=== PATIENT | male | born 1960 | race Caucasian/White ===

== ENCOUNTER 2016-12-06 15:17 | Emergency (ER) | payer SELFPAY ==
[~2016-12-06] VITALS: Ht 180.3 cm; Wt 111.1 kg
[~2016-12-06 15:17] MED LIST: ALLOPURINOL300 MG PO; ANDROGEL75 G1 TD; BUPROPION XL300 MG PO; FLOMAX0.4 MG PO; LISINOPRIL-HCT1 EACH PO; NORCO 5-325 TA1 EACH PO; SIMVASTATIN40 MG PO; ZOFRAN4 MG PO
== END 2016-12-06 15:35 | disposition home or self-care (01) ==
LOC: ED 15:17
DX: Z00.8 Encounter for other general examination (principal)

== ENCOUNTER 2019-02-24 14:13 | Emergency (ER) | payer OTHER ==
[~2019-02-24] VITALS: Ht 180.3 cm; Wt 111.1 kg
== END 2019-02-24 15:07 | disposition home or self-care (01) ==
LOC: ED 14:13
DX: S46.201A Unspecified injury of muscle, fascia and tendon of other parts of biceps, right arm, initial encounter (principal); W22.8XXA Striking against or struck by other objects, initial encounter; I10 Essential (primary) hypertension; Z88.5 Allergy status to narcotic agent; Z79.899 Other long term (current) drug therapy
CPT/HCPCS: 99283

== ENCOUNTER 2020-07-23 07:00 | Day surgery (SDC) | payer OTHER ==
[~2020-07-23] VITALS: Ht 180.3 cm; Wt 113.6 kg
[~2020-07-23 07:00] MED LIST changes: +ADVIL200 MG PO; +GABAPENTIN300 MG PO; +HYDROCODON-ACE1 EA11 PO; +LEVOTHYROXINE50 MCG PO; +NORCO 7.5-3251 EACH PO
--- NOTE | 2020-07-23 08:52 | NUR ---
PT ALERT, ORIENTED AND SUPPORTED BY HIS DA. PT HAS HAD PREVIOUS SCOPE. PREP WAS A LITTLE OF A CHALLENGE. ALL QUESTIONS ASKED ANSWERED. PT'S DA WILL RETURN AT [place]. PT REQUESTED PRAYER, WILL FOLLOW NEEDED
--- NOTE | 2020-07-23 08:56 | NUR ---
07/23/20 0856 Elías,Nataliya 0849 PT ARRIVED TO PACU ON 6L VIA MASK, RESP EVEN AND UNLABORED. VSS. 0854 PT WAKES TO TACTILE STIMULI AND ENCOURAGED TO PASS GAS. PT DENIES PAIN AND NAUSEA.
--- NOTE | 2020-07-23 09:49 | OR ---
[facility] [address], [place] [address] Signed DATE OF OPERATION: 07/23/2020 SURGEON: Agustina Santos MD PREOPERATIVE DIAGNOSES: 1. History of diverticulosis/diverticulitis. 2. Hyperplastic polyps in 1999 and 2014. POSTOPERATIVE DIAGNOSES: 1. 5 mm polyp at 22 cm (distal sigmoid colon). 2. 3 mm polyp at 16 cm (rectosigmoid junction). 3. 3 mm polyp at 8 cm. 4. Moderate diverticulosis, left greater than right. 5. Moderate-sized internal anal skin tag x1. PROCEDURE: Colonoscopy with hot biopsy. ESTIMATED BLOOD LOSS: None. INDICATIONS: Sherrie is a 59-year-old gentleman, asked to see me for a followup colonoscopy. He said over the years he has had two or three bouts of diverticulitis. He recognizes the pain and puts himself on a liquid diet. He calls his primary care provider and gets antibiotics and recovers quite nicely. He said he had a colonoscopy in [address] Cerda. He said he had hyperplastic polyps removed. He also likes to drink a little whiskey every day after work and therefore, he requires monitored anesthesia care with propofol. He did have a CT scan of the abdomen and pelvis in February 2020 showing his diverticular disease. There were no inflammatory changes at that time. He said he was just finishing his antibiotics. Overall, he said he is feeling much better. There is no family history of colon cancer or polyps. In the office, I gave Sherrie a booklet on diverticulosis as well as colonoscopy. He understands colonoscopy quite well. He understands the risks including, but not limited to gas bloating, crampy abdominal pain, bleeding, perforation requiring surgery, and missed diagnosis. He also understands the need for monitored anesthesia care. He had expressed understanding and wished to proceed. PROCEDURE NOTE: Sherrie was taken into our endoscopy suite and placed in the left lateral decubitus Electronically Signed By: AGUSTINA SANTOS MD 07/23/20 0949 PATIENT NAME: SHERRIE SERRATO OPERATIVE REPORT DATE OF : 58 REPORT #: [id number] PHYSICIAN: AGUSTINA SANTOS MD PCP: PRIYANKA [place]CHELL MD REPORT IS CONFIDENTIAL AND NOT TO BE RELEASED WITHOUT AUTHORIZATION [facility] [address], [place] [address] Signed position. He was maintained on IV sedation per nurse distribution operation supervisor. A digital rectal exam was performed and this was unremarkable. His prostate is mildly enlarged and indurated. The adult colonoscope was introduced and advanced under direct visualization of camera. He does have moderate diverticula in the sigmoid and distal left colon. They were moderate in size, moderate in number, and scattered about. His sigmoid colon is a bit long and it took just a few minutes to get through that area and then around to the cecum itself. Not particularly severe. He does have a few diverticula right around the cecum and ileocecal valve. We could easily identify the appendiceal orifice and his ileocecal valve. His prep was quite excellent. The scope was slowly withdrawn. We took pictures throughout for photodocumentation. The above-mentioned polyps were easily removed with the help of hot biopsy forceps. We retroflexed the scope in the rectum and he has just a single moderate-sized pedunculated internal anal skin tag. It could easily be removed with a snare or the hot biopsy if he would desire in the future. After this, the gas was suctioned out and the colonoscope removed. Sherrie tolerated the procedure quite well. RECOMMENDATIONS: I will see Sherrie back in my office in 7 to 14 days to review his results. Agustina Santos MD ALB/MODL /[id number] cc: MD Priyanka Cantrell MD Copies: AGUSTINA SANTOS MD, JONATHAN MD ~ Electronically Signed By: AGUSTINA SANTOS MD 07/23/20 0949 PATIENT NAME: SHERRIE SERRATO OPERATIVE REPORT DATE OF : 58 REPORT #: [id number] PHYSICIAN: AGUSTINA SANTOS MD PCP: PRIYANKA [place]CHELL MD REPORT IS CONFIDENTIAL AND NOT TO BE RELEASED WITHOUT AUTHORIZATION
--- NOTE | 2020-07-24 15:13 | PATH ---
[facility] [address] [place], [place] [address] Signed SPECIMEN(S): A DISTAL SIGMOID POLYP 22 CM SPECIMEN(S): B DISTAL SIGMOID POLYP 16 CM SPECIMEN(S): C RECTAL POLYP 8 CM SPECIMEN SOURCE: A. DISTAL SIGMOID POLYP 22 CM B. DISTAL SIGMOID POLYP 16 CM C. RECTAL POLYP 8 CM CLINICAL HISTORY: Colonoscopy. Diverticulosis, history of colon polyps. Postop: Colorectal polyps, diverticulosis, skin tag. MICROSCOPIC DESCRIPTION: Histologic sections of all submitted blocks are examined by light microscopy. These findings, together with the gross examination, support the pathologic diagnosis. FINAL PATHOLOGIC DIAGNOSIS: A. Distal sigmoid colon, 22 cm, polypectomy: - Tubular adenoma (one fragment). - Two additional fragments show hyperplastic type change. - Negative for high-grade dysplasia or malignancy. B. Distal sigmoid colon polyp at 16 cm, biopsy: - Hyperplastic polyp. C. Rectum, polypectomy: - Tubular adenoma. - Negative for high-grade dysplasia or malignancy. DWS:cml:C2NR GROSS DESCRIPTION: Three specimens are received in three containers, labeled "DS." A. The specimen, labeled "DS, distal sigmoid colon polyp at 22 cm," is received in formalin and consists of three chaudhary soft tissue fragments that measure 0.1-0.2 cm in greatest dimension. The specimen is entirely submitted in cassette (A1). B. The specimen, labeled "DS, distal sigmoid colon polyp at 16 cm," is received in formalin and consists of one chaudhary soft tissue fragment that measures 0.2 cm in greatest dimension. The specimen is entirely submitted in cassette (B1). C. The specimen, labeled "DS, rectal polyp at 8 cm," is received in formalin and consists of one chaudhary soft tissue fragment that measures 0.1 cm in greatest PATIENT NAME: SHERRIE SERRATO PATHOLOGY DATE OF : 58 REPORT #: [id number] PHYSICIAN: PARI PATHOLOGY PCP: PRIYANKA MITCHELL MD REPORT IS CONFIDENTIAL AND NOT TO BE RELEASED WITHOUT AUTHORIZATION [facility] [address] [place], [place] [address] Signed dimension. The specimen is entirely submitted in cassette (C1). JS (under the direct supervision of a pathologist) The Gross Description was prepared using a voice recognition system. The report was reviewed for accuracy; however, sound-alike word errors, addition and/or deletions may occur. If there is any question about this report, please contact Client Services. PERFORMING LABORATORY: The technical component was performed by [employer], [address] [place] [address] (School Standards Coach: Ping Bourgeois MD; CLIA# [id number]). Professional interpretation was performed by [employer], [facility], [address] [place] [address] (CLIA#: [id number]). Diagnostician: Silas Linares MD Pathologist Electronically Signed 07/24/2020 Copies: ~ PATIENT NAME: SHERRIE SERRATO PATHOLOGY DATE OF : 58 REPORT #: [id number] PHYSICIAN: PARI GOMEZ PCP: PRIYANKA MITCHELL MD REPORT IS CONFIDENTIAL AND NOT TO BE RELEASED WITHOUT AUTHORIZATION
== END 2020-07-23 09:21 | disposition home or self-care (01) ==
LOC: OPS 07:00 → DS 07:00 → OPS 08:15 → DS 08:45 → OPS 09:21 → DS 10:00
PROVIDERS: ATTEND Colon & Rectal Surgery
PROC: 0DBN8ZX Excision of Sigmoid Colon, Via Natural or Artificial Opening Endoscopic, Diagnostic (ICD-10-PCS; 2020-07-23)
PROC: 0DBP8ZX Excision of Rectum, Via Natural or Artificial Opening Endoscopic, Diagnostic (ICD-10-PCS; principal; 2020-07-23 08:15)
DX: Z12.11 Encounter for screening for malignant neoplasm of colon (principal); K57.30 Diverticulosis of large intestine without perforation or abscess without bleeding; D12.7 Benign neoplasm of rectosigmoid junction; K64.4 Residual hemorrhoidal skin tags; I10 Essential (primary) hypertension; E78.5 Hyperlipidemia, unspecified; E03.9 Hypothyroidism, unspecified; Z87.891 Personal history of nicotine dependence; Z79.82 Long term (current) use of aspirin; Z88.5 Allergy status to narcotic agent; Z86.010 Personal history of colon polyps
CPT/HCPCS: J2704; J7121